=== PATIENT | male | born 1940 | race Caucasian/White ===

== ENCOUNTER 2017-09-16 14:02 | Outpatient (CLI) | payer MEDICARE ==
--- NOTE | 2017-09-16 16:20 | MRI ---
MRI OF THE RIGHT KNEE WITHOUT CONTRAST: Date: 09/16/17 INDICATION: Right knee pain. FINDINGS: There is moderate osteoarthrosis of the right knee joint, predominantly affecting the medial femoroti bial and patellofemoral compartment. There is a large area of full thickness articular cartilage thin marquita involving the median patellar ridge and median patellar facet. There are large areas of full thi ckness thinning involving the medial tibial plateau with subchondral cyst formation. There is a compl ex degenerative tear involving the medial meniscus with a radial component involving the posterior ro ot/horn. There is extrusion of the medial meniscus. Predominantly horizontal component is seen involv ing the posterior horn and posterior body of the medial meniscus. There is a portion of a displaced m eniscal flap from the central posterior horn into the intercondylar space adjacent to the PCL. The AC L is intact. The PCL is intact. The LCLC and MCL are intact. The extensor mechanism is intact. There is a large semimembranosus-median gastrocnemius popliteal cyst. There is moderate effusion in the pop liteal recess. There is a small, horizontally oriented tear involving the central free edge of the la teral meniscus. IMPRESSION: 1. Moderate osteoarthrosis of the right knee with medial meniscal tear. There is a displaced radial flap component from the posterior root of the medial meniscus displaced into the intercondylar notch. 2. Small, central free edge lateral meniscal tear. POS: [facility]
== END 2017-09-16 14:03 | disposition home or self-care (01) ==
LOC: SCSMRI 14:02
PROVIDERS: ATTEND Orthopaedic Surgery
DX: M25.561 Pain in right knee (principal); M17.11 Unilateral primary osteoarthritis, right knee; S83.241A Other tear of medial meniscus, current injury, right knee, initial encounter; S83.281A Other tear of lateral meniscus, current injury, right knee, initial encounter

== ENCOUNTER 2018-11-06 13:00 | Inpatient (IN) | payer MEDICARE ==
[2018-11-06 12:58] VITALS: BMI 27.1
[2018-11-18] MEDS ORDERED: Vancomycin HCl 1.5 GM in Sodium Chloride 0.9% 250 ML 300 ML IVPB SCH ×2 (06:15→18:00)
[2018-11-18] MEDS ORDERED: Tranexamic Acid 1,000 MG/10 ML VIAL ONE ×2 (06:24→09:14)
[2018-11-18] MEDS ORDERED: Sodium Chloride 0.9% 100 ML ONE (06:24)
[2018-11-18] MEDS ORDERED: Fentanyl 100 MCG/2 ML VIAL ONE (06:30)
[2018-11-18] MEDS ORDERED: Midazolam HCl 2 mg/2 ml Vial ONE (06:30)
[2018-11-18] MEDS ORDERED: Bupivacaine/Epinephrine 0.25% 30 ML VIAL ONE (06:38)
[2018-11-18] MEDS ORDERED: Promethazine HCl 25 MG/ML VIAL IM PRN ×2 (07:11→10:46)
[2018-11-18] MEDS ORDERED: Ropivacaine HCl/PF 250 ML in Premix Bag 1 BAG NERVE BLCK SCH (07:11)
[2018-11-18] MEDS ORDERED: HYDROcodone/Acetaminophen 10/325 mg Tablet PO PRN ×3 (07:11→10:46)
[2018-11-18] MEDS ORDERED: Ketorolac Tromethamine 30 MG/ML VIAL IVP PRN ×2 (07:11→10:46)
[2018-11-18] MEDS ORDERED: Ondansetron PF 4 MG/2 ML Vial IVP PRN ×2 (07:11→10:46)
[2018-11-18] MEDS ORDERED: traMADol HCl 50 MG TAB PO PRN ×2 (07:11→10:46)
[2018-11-18] MEDS ORDERED: Zolpidem Tartrate 5 MG TAB PO PRN ×2 (07:11→10:46)
[2018-11-18] MEDS ORDERED: Fentanyl 100 MCG/2 ML VIAL IV PRN (07:12)
[2018-11-18] MEDS ORDERED: Tranexamic Acid 1,000 MG in Sodium Chloride 0.9% 100 ML IVPB SCH (09:15)
--- NOTE | 2018-11-18 09:39 | RAD ---
XR Knee Rt 2 View History: Postop total knee Comparison: None. Findings: Satisfactory appearance right total knee arthroplasty and patellar resurfacing. Expected po stoperative gas and edema. Impression: Satisfactory postoperative appearance.
[2018-11-18] MEDS ORDERED: Ferrous Gluconate 324 MG TAB PO SCH (10:46)
[2018-11-18] MEDS ORDERED: diphenhydrAMINE 25 MG CAP PO PRN (10:46)
[2018-11-18] MEDS ORDERED: CEFAZOLIN 2 GM in Premix Bag 1 BAG IVPB SCH (10:46)
[2018-11-18] MEDS ORDERED: Fentanyl 100 MCG/2 ML VIAL SLOW IVP PRN ×2 (10:46)
[2018-11-18] MEDS ORDERED: Multivitamin W/ Minerals 1 TAB PO SCH (10:46)
[2018-11-18] MEDS ORDERED: Aspirin 81 mg Enteric Coated Tablet PO SCH ×2 (10:46→11:00)
[2018-11-18] MEDS: Dextrose 5 %-0.45 % NaCl 1,000 ML IV SCH ×2 (12:29→20:26)
--- NOTE | 2018-11-18 12:29 | OP ---
DATE OF PROCEDURE: 11/18/2018 PREOPERATIVE DIAGNOSIS: Right knee osteoarthritis. POSTOPERATIVE DIAGNOSIS: Right knee osteoarthritis. PROCEDURE PERFORMED: Right total knee arthroplasty. SPOOL HAULER: Hoa Alfred PA-C ANESTHESIOLOGIST: Dr. Huy Escobedo. ANESTHESIA: The patient received an LMA with a single-shot sciatic adductor canal block. ESTIMATED BLOOD LOSS: 100 mL. TOURNIQUET TIME: 77 minutes at 300 mmHg. ANTIBIOTICS: Ancef 2 g, vancomycin 1.5 g, and TXA 1 g. The patient received a triathlon size 5 femur, 5 tibia, 9 CS poly X3 and an A29 symmetric poly. COMPLICATIONS: None. HISTORY OF PRESENT ILLNESS: Mr. Ascencio is a 78-year-old male, who presented with right knee pain for several years with failed conservative management. The patient desired to proceed with right total knee arthroplasty. Assessed the risks and benefits of surgery to include pain, scar, bleeding, infection, damage to vital structures, decreased range of motion and strength, fracture above and below the stem, nonunion, malunion, need for revision surgery, loss of life or limb. The patient understood the risks and benefits of the procedure and elected to proceed. DESCRIPTION OF PROCEDURE: After time-out was performed designating the patient's right lower extremity as the operative site based on site, consents, and marking. After time-out, the patient's right lower extremity was prepped and draped in a sterile fashion. The tourniquet was up for a total of 77 minutes. Anterior midline incision in the medial patellar approach, excised the fat pad to release medial soft tissues, exposed distal femur cut, mapped out the femur cut 2 degrees posterior, 4 degrees anterior slope, and cut 10 and 9 respectively. We then mapped out. After removing this, we placed our retractors and protector cuts. We then placed our block, measured to a 5, cut with 5 block anterior and posterior chamfer cuts. We placed our pickle fork to retract out PCL as well as our distal lateral tibia, which we mapped out at 0 degrees of varus and valgus, 4 degrees of slope, and a 1 and 8 respectively. We removed medial osteophytes. We placed the lamina plant utilities engineer, removed the osteophytes, meniscus, decompressed the PCL both medial and lateral compartments. tibial tray into position. We floated a little bit, but it felt like it floated better with right on the anterior 1/3rd of tibial tubercle. We liked overall alignment of the tray in the femur. We pinned the pin into place, it is 9 poly. The patient tracked well. Good varus and valgus stability and flexion. We cut our patella down from 24 down to about 14 mm. It tracked well with A29. We then removed all components, drilled our lug cut our keel for tibia, washed. We cemented our tibia, placed our poly, cemented our femur, removed excess cement from both. After placing our patella, flexed the knee back up, removed all excess cement. It was protected in place, closed with 2 Vicryl, 2 Stratafix, 0 Stratafix, 3-0 Stratafix, and glue. The patient will be followed inhouse, angio protocol. Follow up in the morning. Job ID: [id number]
[2018-11-18] MEDS: traMADol HCl 50 MG TAB PO PRN ×2 (13:56→22:10)
[2018-11-18] MEDS: CEFAZOLIN 2 GM in Premix Bag 1 BAG IVPB SCH ×2 (13:57→22:01)
[2018-11-18] MEDS: Senokot S 8.6-50 MG TAB PO SCH (19:36)
[2018-11-18] MEDS: Ferrous Gluconate 324 MG TAB PO SCH (19:36)
[2018-11-18] MEDS: Aspirin 81 mg Enteric Coated Tablet PO SCH (20:10)
[2018-11-18] MEDS: Atorvastatin Calcium 10 MG TAB PO SCH (20:10)
[2018-11-18] MEDS: Acetaminophen 325 MG TAB PO PRN (20:11)
[2018-11-18] MEDS: Carvedilol 6.25 MG TAB PO SCH (20:11)
[2018-11-19] MEDS: HYDROcodone/Acetaminophen 10/325 mg Tablet PO PRN ×2 (04:09→10:03)
[2018-11-19 05:37] LABS: Hemoglobin 12.9 g/dL (14.0-18.0); Mean Corpuscular HGB CONC 33.5 g/dL (32.0-36.0); Mean Corpuscular Hemoglobin 30.7 pg (27.0-31.0); Mean Corpuscular Volume 91.7 fL (78.0-98.0); Platelet Count 183 thou/uL (130-400); RBC Distribution Width 12.4 % (11.5-14.5); Red Blood Cell (RBC) Count 4.19 mill/uL (4.70-6.10); White Blood Cell (WBC) Count 13.1 thou/uL (4.8-10.8)
[2018-11-19] MEDS: Dextrose 5 %-0.45 % NaCl 1,000 ML IV SCH ×2 (06:18→16:23)
[2018-11-19] MEDS: Ferrous Gluconate 324 MG TAB PO SCH ×2 (08:29→20:33)
[2018-11-19] MEDS: Carvedilol 6.25 MG TAB PO SCH ×2 (08:29→20:32)
[2018-11-19] MEDS: Amlodipine 5 MG TAB PO SCH (08:30)
[2018-11-19] MEDS: Senokot S 8.6-50 MG TAB PO SCH ×2 (08:30→20:33)
[2018-11-19] MEDS: Aspirin 81 mg Enteric Coated Tablet PO SCH ×2 (08:30→20:33)
[2018-11-19] MEDS: Losartan 25 MG TAB PO SCH (08:30)
[2018-11-19] MEDS: Multivitamin W/ Minerals 1 TAB PO SCH (08:30)
[2018-11-19] MEDS: Tamsulosin HCl 0.4 MG CAP PO SCH (08:31)
[2018-11-19 10:00] LABS: Clarity TURBID (Clear)
[2018-11-19 10:02] LABS: Bacteria/HPF None Seen HPF (None Seen); Squamous Epithelial 0-3 HPF (0-3)
[2018-11-19 10:21] LABS: Leukocyte Unable to Interpret (Negative); Nitrite Unable to Interpret (Negative); Pathc Cast-AUWi Flag 6.82 (0-2.49); Yeast-AUWi Flag 158.7 (0-25.0)
[2018-11-19 10:22] LABS: Bilirubin Unable to Interpret (Negative); Blood, Urine Unable to Interpret (Negative); Glucose, Urine (Dipstick) Unable to Interpret mg/dL (Negative); Urobilinogen UNABLE TO INTERPRET mg/dL (0.2-1.0)
[2018-11-19 10:46] LABS: Specific Gravity, Urine 1.023 (1.002-1.036); pH, Urine 5.7 (5.0-9.0)
[2018-11-19 10:47] LABS: Manual Microscopic Reviewed? No Path Casts Seen; RBC/HPF GREATER THAN 50-TNTC HPF (0-3); Yeast-All Forms None Seen HPF (None Seen)
--- NOTE | 2018-11-19 10:47 | CON ---
DATE OF CONSULTATION: 11/19/2018 HISTORY OF PRESENT ILLNESS: This is a 78-year-old white male, postop day #1, status post right total knee replacement by Dr. Pacheco. The patient has history of hypertension and hyperlipidemia. He was cleared for surgery by Dr. Lyon. Surgery went well. The only postop problem was urinary retention. He required one in-and-out catheterization last night of 800 mL. This morning, he is having difficulty voiding. Other than that, the patient is doing well with minimal complaints of pain. PAST MEDICAL HISTORY: Hypertension and hyperlipidemia. PAST SURGERIES: Hernia, carpal tunnel release, colonoscopy. FAMILY HISTORY: Father with heart disease. Mother with heart disease. SOCIAL HISTORY: The patient is a nonsmoker. He is . He has 3 sons, 1 daughter. 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 MEDICATIONS: 1. Aspirin 81 daily. 2. Atorvastatin 10 daily. 3. Amlodipine 5 daily. 4. Losartan 50 daily. 5. Omeprazole 40 daily. REVIEW OF SYSTEMS: As above. PHYSICAL EXAMINATION: VITAL SIGNS: Temperature 98.5, pulse 79, respirations 18, pulse ox 95, blood pressure 138/75. GENERAL: No acute distress. HEENT: Clear. HEART: Regular rate and rhythm. LUNGS: Clear. ABDOMEN: Soft. EXTREMITIES: With minimal edema. LABORATORY DATA: White count 13.1, H and H of 12 and 38. ASSESSMENT: 1. Postoperative day #1, status post right total knee replacement. 2. Urinary retention, most likely due to Grissom catheter during surgery. 3. Hypertension. 4. Hyperlipidemia. PLAN: 1. We will start Flomax 0.4 p.o. daily. Hopefully, this will help him void. Otherwise, we might consider Urology consult. 2. Continue routine [employer] program. 3. Hopefully, can discharge by tomorrow. Job ID: [id number]
[2018-11-19 10:48] LABS: Protein, Urine (Dipstick) Unable to Interpret mg/dL (Neg-Trace)
[2018-11-19 10:49] LABS: Hyaline Casts/LPF NONE SEEN LPF (0-3 Hyaline)
[2018-11-19] MEDS ORDERED: Tamsulosin HCl 0.4 MG CAP PO SCH (18:15)
[2018-11-19] MEDS: Acetaminophen 325 MG TAB PO PRN (20:32)
[2018-11-19] MEDS: Atorvastatin Calcium 10 MG TAB PO SCH (20:33)
[2018-11-19] MEDS: traMADol HCl 50 MG TAB PO PRN (22:25)
[2018-11-20] MEDS: Dextrose 5 %-0.45 % NaCl 1,000 ML IV SCH (02:52)
[2018-11-20 05:49] LABS: Hemoglobin 11.4 g/dL (14.0-18.0); Mean Corpuscular HGB CONC 32.3 g/dL (32.0-36.0); Mean Corpuscular Hemoglobin 29.9 pg (27.0-31.0); Mean Corpuscular Volume 92.6 fL (78.0-98.0); Mean Platelet Volume 8.6 fL (7.4-10.4); Platelet Count 172 thou/uL (130-400); RBC Distribution Width 12.7 % (11.5-14.5); Red Blood Cell (RBC) Count 3.83 mill/uL (4.70-6.10); White Blood Cell (WBC) Count 12.2 thou/uL (4.8-10.8)
[2018-11-20] MEDS: Losartan 25 MG TAB PO SCH (08:57)
[2018-11-20] MEDS: Carvedilol 6.25 MG TAB PO SCH (08:58)
[2018-11-20] MEDS: Senokot S 8.6-50 MG TAB PO SCH (08:58)
[2018-11-20] MEDS: Aspirin 81 mg Enteric Coated Tablet PO SCH (08:58)
[2018-11-20] MEDS: Amlodipine 5 MG TAB PO SCH (08:59)
[2018-11-20] MEDS: Ferrous Gluconate 324 MG TAB PO SCH (08:59)
[2018-11-20] MEDS: Tamsulosin HCl 0.4 MG CAP PO SCH (08:59)
[2018-11-20] MEDS: Multivitamin W/ Minerals 1 TAB PO SCH (08:59)
--- NOTE | 2018-11-20 10:39 | PRG ---
DATE OF SERVICE: 11/20/2018 SUBJECTIVE: The patient is doing well. The patient is urinating without any difficulty. Today is postop day #2. He did well yesterday with Physical Therapy. OBJECTIVE: VITAL SIGNS: Temperature 98.9, pulse 79, respirations 14, blood pressure 145/72. HEART: Regular rate and rhythm. LUNGS: Clear. ABDOMEN: Soft. EXTREMITIES: With no edema. LABORATORY DATA: Hemoglobin and hematocrit are 11 and 35. ASSESSMENT: 1. Postoperative day #2, status post right total knee replacement. 2. Urinary retention, resolved. 3. Hypertension. 4. Hyperlipidemia. PLAN: 1. PT today and then probable discharge. 2. Probably does not need Flomax going home. 3. We will follow up in the office next week, Saturday or Saturday. To call the office if there are any urinary problems. Job ID: [id number]
[2018-11-20] MEDS: HYDROcodone/Acetaminophen 10/325 mg Tablet PO PRN (14:38)
[2018-11-20 15:31] VITALS: BP 127/49; TEMP 99.3
--- NOTE | 2018-11-21 12:51 | DIS ---
DATE OF ADMISSION: 11/18/2018 DATE OF DISCHARGE: 11/20/2018 This is Edgar Shahid PA-C dictating a report for Farhan Pacheco MD. PREOPERATIVE DIAGNOSIS: Right knee osteoarthritis/degenerative joint disease. POSTOPERATIVE DIAGNOSIS: Right knee osteoarthritis/degenerative joint disease. PROCEDURE PERFORMED: The patient underwent a right total knee replacement. HOSPITAL COURSE: Hospital stay was unremarkable. The patient was admitted to [address], where he worked with staff, Physical Therapy, Occupational Therapy, and progressed quite well. By postoperative day 2, he was ready to discharge home. DISCHARGE CONDITION: Good/stable. DISPOSITION: Home with family. FOLLOWUP: Followup will be in 2 to 3 weeks, sooner if there are problems or concerns. DISCHARGE MEDICATIONS: Discharge medications were sent with usage instructions. Job ID: [id number]
== END 2018-11-20 15:40 | disposition home or self-care (01) | DRG 470 ==
LOC: SJJU 11-18 05:42 → SURG A 11-18 10:31
PROVIDERS: ADMIT Orthopaedic Surgery; ATTEND Orthopaedic Surgery
PROC: 0SRC0J9 Replacement of Right Knee Joint with Synthetic Substitute, Cemented, Open Approach (ICD-10-PCS; principal; 2018-11-18)
DX: M17.11 Unilateral primary osteoarthritis, right knee (principal); I10 Essential (primary) hypertension; E78.5 Hyperlipidemia, unspecified; Z79.899 Other long term (current) drug therapy; Z79.82 Long term (current) use of aspirin; R33.8 Other retention of urine
CPT/HCPCS: 36415; 81001; 85027; 86850; 86900; 86901; 87086; C1713; C1776; J0690; J2250; J2795; J3010; J3370; J3490; J7050

== ENCOUNTER 2023-05-09 13:18 | Outpatient (CLI) | payer MEDICARE | END 2023-05-09 13:19 | disposition home or self-care (01) | LOC: BICRAD 13:18 | PROVIDERS: ATTEND Family Medicine | DX: J40 Bronchitis, not specified as acute or chronic (principal); I51.7 Cardiomegaly; J94.8 Other specified pleural conditions | CPT/HCPCS: 71046 ==

== ENCOUNTER 2023-08-18 09:59 | Emergency (ER) | payer MEDICARE ==
[2023-08-18] MEDS ORDERED: Acetaminophen 500 MG TAB ONE (10:49)
== END 2023-08-18 11:06 | disposition home or self-care (01) ==
LOC: ERS 09:59
DX: M25.531 Pain in right wrist (principal); I11.0 Hypertensive heart disease with heart failure; I50.9 Heart failure, unspecified; E78.5 Hyperlipidemia, unspecified; K21.9 Gastro-esophageal reflux disease without esophagitis; W11.XXXA Fall on and from ladder, initial encounter; Z87.891 Personal history of nicotine dependence